=== PATIENT | female | born 1965 | race American Indian/Alaskan Native ===

== ENCOUNTER 2016-11-30 15:48 | Emergency (ER) | payer BC ==
[2016-11-30 16:19] VITALS: BP 145/83; RESP 18; TEMP 98.1
[2016-11-30] MEDS ORDERED: Enoxaparin 120 mg Syringe SC STA (16:53)
[2016-11-30 17:13] VITALS: PULSE 66; O2SAT 97
--- NOTE | 2016-11-30 17:57 | C.PDOC ---
History Of Present Illness 51 y/o female presents to ED with complaints of left calf swelling increasing with nature for 4 days. Patient denies trauma, recent travel, tender to touch or sob. Patient has no Hx of blood clots. No other complaints at this time. Chief Complaint (Nursing): Lower Extremity Problem/Injury History Per: Patient History/Exam Limitations: no limitations Onset/Duration Of Symptoms: Days Current Symptoms Are (Timing): Still Present Past Medical History Reviewed: Historical Data, Nursing Documentation, Vital Signs Vital Signs: Last Vital Signs Temp 98.1 F 11/30/16 16:15 Pulse 66 11/30/16 17:10 Resp 18 11/30/16 17:10 BP 145/83 11/30/16 16:15 Pulse Ox 97 11/30/16 18:01 Surgical History: Cholecystectomy Family History: States: No Known Family Hx - Social History Hx Alcohol Use: No Hx Substance Use: No Review Of Systems Except As Marked, All Systems Reviewed And Found Negative. Constitutional: Negative for: Fever, Chills Gastrointestinal: Negative for: Nausea, Vomiting, Diarrhea Musculoskeletal: Positive for: Leg Pain Skin: Negative for: Rash Neurological: Negative for: Weakness Physical Exam - Physical Exam Appears: Non-toxic, No Acute Distress Skin: Normal Color, Warm Head: Atraumatic, Normacephalic Cardiovascular: Rhythm Regular, No Murmur Respiratory: Normal Breath Sounds, No Rales, No Rhonchi, No Wheezing Gastrointestinal/Abdominal: Soft, No Tenderness, No Guarding, No Rebound Extremity: Capillary Refill (<2 seconds), Other (Left lower extremity larger than right) Pulses: Left Femoral: Normal, Right Femoral: Normal Neurological/Psych: Oriented x3, Normal Motor, Normal Sensation, Normal Reflexes ED Course And Treatment O2 Sat by Pulse Oximetry: 97 (RA) Pulse Ox Interpretation: Normal Progress Note: Patient was given Lovenox injection and was advised to follow up at ED tomorrow for US, Patient understands plan Disposition - Disposition Referrals: Mika Devi, [Non-Staff] - Disposition: HOME/ ROUTINE Disposition Time: 16:50 Condition: GOOD Additional Instructions: Thank you for letting us take care of you today. Your provider was Dr. Porter. You were treated for leg swelling. The emergency medical care you received today was directed at your acute symptoms. If you were prescribed any medication, please fill it and take as directed. It may take several days for your symptoms to resolve. Return to the Emergency Department if your symptoms worsen, do not improve, or if you have any other problems. Please contact your doctor or call one of the physicians/clinics you have been referred to that are listed on the Patient Visit Information form that is included in your discharge packet. Bring any paperwork you were given at discharge with you along with any medications you are taking to your follow up visit. Our treatment cannot replace ongoing medical care by a primary care provider (PCP) outside of the emergency department. Thank you for allowing the [facility] team to be part of your care today. FOLLOW UP IN THE EMERGENCY ROOM TOMORROW MORNING AT 9AM FOR AN ULTRASOUND STUDY ON YOUR LEFT LEG. Instructions: Leg Edema (ED) - Clinical Impression Clinical Impression: Leg swelling - Scribe Statement The provider has reviewed the documentation as recorded by the Doris Davison All medical record entries made by the Donaldibmiguel were at my direction and personally dictated by me. I have reviewed the chart and agree that the record accurately reflects my personal performance of the history, physical exam, medical decision making, and the department course for this patient. I have also personally directed, reviewed, and agree with the discharge instructions and disposition.
== END 2016-11-30 17:12 | disposition home or self-care (01) ==
LOC: C.ER 15:48
DX: M79.89 Other specified soft tissue disorders (principal)
CPT/HCPCS: 96372; 99284; J1650

== ENCOUNTER 2016-12-01 08:52 | Emergency (ER) | payer BC ==
[2016-12-01 09:10] VITALS: BMI 30.2
[2016-12-01 09:11] VITALS: BP 141/87; PULSE 70; RESP 18; TEMP 97.7; O2SAT 96
--- NOTE | 2016-12-01 10:00 | C.PDOC ---
History Of Present Illness 51 y/o female presents to the ED for doppler of left leg. Pt seen yesterday for left leg swelling, instructed to return today for doppler study. Denies fever, chills, chest pain, SOB or any other complaints. Time Seen by Provider: 12/01/16 09:09 Chief Complaint (Nursing): Medical Clearance History Per: Patient History/Exam Limitations: no limitations Onset/Duration Of Symptoms: Days Current Symptoms Are (Timing): Still Present Severity: Moderate Reports Recently: Seen In ED Recent travel outside of the [place]: No Past Medical History Reviewed: Historical Data, Nursing Documentation, Vital Signs Vital Signs: Last Vital Signs Temp 97.7 F 12/01/16 09:08 Pulse 70 12/01/16 09:08 Resp 18 12/01/16 09:08 BP 141/87 12/01/16 09:08 Pulse Ox 96 12/01/16 10:26 - Medical History PMH: No Chronic Diseases Surgical History: Cholecystectomy Family History: States: Unknown Family Hx - Social History Hx Alcohol Use: No Hx Substance Use: No - Immunization History Hx Tetanus Toxoid Vaccination: Yes Hx Influenza Vaccination: Yes Hx Pneumococcal Vaccination: Yes Review Of Systems Except As Marked, All Systems Reviewed And Found Negative. Constitutional: Negative for: Fever, Chills Cardiovascular: Negative for: Chest Pain Respiratory: Negative for: Shortness of Breath Musculoskeletal: Positive for: Other (left leg swelling) Physical Exam - Physical Exam Appears: Non-toxic, No Acute Distress Skin: Warm, Dry, No Rash Head: Atraumatic, Normacephalic Oral Mucosa: Moist Neck: Normal, Normal ROM, Supple Chest: Symmetrical Cardiovascular: Rhythm Regular, No Murmur Respiratory: Normal Breath Sounds, No Rales, No Rhonchi, No Wheezing Gastrointestinal/Abdominal: Normal Exam, Soft, No Tenderness Extremity: Normal ROM, Capillary Refill (<2 seconds), Swelling (diffuse left leg swelling and tenderness) Pulses: Left Dorsalis Pedis: Normal, Right Dorsalis Pedis: Normal Neurological/Psych: Oriented x3, Normal Speech, Normal Motor, Normal Sensation ED Course And Treatment O2 Sat by Pulse Oximetry: 96 (room air) Pulse Ox Interpretation: Normal Progress Note: Plan: venous duplex left lower extremity. Doppler (-) DVT Reassessment Condition: Unchanged Disposition Counseled Patient/Family Regarding: Studies Performed, Diagnosis, Need For Followup - Disposition Disposition: HOME/ ROUTINE Disposition Time: 11:00 Condition: STABLE Additional Instructions: Follow up with your PMD for further evaluation Instructions: Leg Edema (ED), Leg Pain (ED) Forms: Work Excuse - POA Present On Arrival: None - Clinical Impression Clinical Impression: Leg swelling, Leg pain - PA / [employer] / Resident Statement MD/DO has reviewed & agrees with the documentation as recorded. - Scribe Statement The provider has reviewed the documentation as recorded by the Donaldibmiguel Vaughn All medical record entries made by the Doris were at my direction and personally dictated by me. I have reviewed the chart and agree that the record accurately reflects my personal performance of the history, physical exam, medical decision making, and the department course for this patient. I have also personally directed, reviewed, and agree with the discharge instructions and disposition.
--- NOTE | 2016-12-02 14:00 | VASCLAB ---
PROCEDURE: Lower Extremity Venous Duplex Exam. HISTORY: Swelling PRIORS: None. TECHNIQUE: Bilateral common femoral, femoral, popliteal and posterior tibial, peroneal and great saphenous veins were evaluated. Flow was assessed with color Doppler, compressibility, assessment of phasic flow and augmentation response. Report prepared by JACOB Rashid FINDINGS: RIGHT: 1. Common Femoral Vein: 1.1. Compressibility - Fully compressible: Thrombus - None : Flow - Phasic: Augmentation -Normal: Reflux - None. 2. Femoral Vein: 2.1. Compressibility - Fully compressible: Thrombus - None : Flow - Phasic: Augmentation -Normal: Reflux - None. 3. Popliteal Vein: 3.1. Compressibility - Fully compressible: Thrombus - None : Flow - Phasic: Augmentation -Normal: Reflux - None. 4. Posterior Tibial Vein: 4.1. Compressibility - Fully compressible: Thrombus - None: Flow - Phasic: Augmentation -Normal: Reflux - None. 5. Peroneal Vein: 5.1. Compressibility - Fully compressible: Thrombus - None: Flow - Phasic: Augmentation -Normal: Reflux - None. 6. Great Saphenous Vein: 6.1. Compressibility - Fully compressible: Thrombus - None: Flow - Phasic: Augmentation - Normal: Reflux - None. LEFT: 1. Common Femoral Vein: 1.1. Compressibility - Fully compressible: Thrombus - None: Flow - Phasic: Augmentation -Normal: Reflux - None. 2. Femoral Vein: 2.1. Compressibility - Fully compressible: Thrombus - None: Flow - Phasic: Augmentation -Normal: Reflux - None. 3. Popliteal Vein: 3.1. Compressibility - Fully compressible: Thrombus - None : Flow - Phasic: Augmentation -Normal: Reflux - None. 4. Posterior Tibial Vein: 4.1. Compressibility - Fully compressible: Thrombus - None: Flow - Phasic: Augmentation -Normal: Reflux - None. 5. Peroneal Vein: 5.1. Compressibility - Fully compressible: Thrombus - None: Flow - Phasic: Augmentation -Normal: Reflux - None. 6. Great Saphenous Vein: 6.1. Compressibility - Fully compressible: Thrombus - None: Flow - Phasic: Augmentation - Normal: Reflux - None. OTHER FINDINGS: Right: None significant. Left: None significant. IMPRESSION: Right: No evidence of deep or superficial vein thrombosis of the right lower extremity. Normal valve function noted of the right side. Left: No evidence of deep or superficial vein thrombosis of the left lower extremity. Normal valve function noted of the left side.
== END 2016-12-01 10:37 | disposition home or self-care (01) ==
LOC: C.ER 08:52
DX: M79.89 Other specified soft tissue disorders (principal); M79.605 Pain in left leg

== ENCOUNTER 2017-11-22 07:53 | Emergency (ER) | payer BC ==
[2017-11-22 07:53] VITALS: BMI 30.2
--- NOTE | 2017-11-22 09:11 | C.PDOC ---
History Of Present Illness 52-year-old female, presents to the emergency department with complaints of several week history of left knee pain. She states it is located in anterior knee and radiates down when she walks. Pain is worsened with walking and movement. She states she has been dealing with the pain for quite some time, but over the past week it has gotten much worse, prompting visit. Denies travel , numbness/weakness, rash, or any other associated symptoms. No other complaints at this time. Time Seen by Provider: 11/22/17 08:24 Chief Complaint (Nursing): Lower Extremity Problem/Injury History Per: Patient History/Exam Limitations: no limitations Past Medical History Reviewed: Historical Data, Nursing Documentation, Vital Signs Vital Signs: Last Vital Signs Temp 98.1 F 11/22/17 10:57 Pulse 84 11/22/17 10:57 Resp 20 11/22/17 10:57 BP 138/64 11/22/17 10:57 Pulse Ox 96 11/22/17 10:57 Surgical History: Cholecystectomy Family History: States: No Known Family Hx - Social History Hx Alcohol Use: No Hx Substance Use: No - Immunization History Hx Tetanus Toxoid Vaccination: Yes Hx Influenza Vaccination: Yes Hx Pneumococcal Vaccination: Yes Review Of Systems Except As Marked, All Systems Reviewed And Found Negative. Constitutional: Negative for: Fever, Chills Gastrointestinal: Negative for: Nausea, Vomiting Skin: Negative for: Rash Neurological: Negative for: Weakness, Numbness Physical Exam - Physical Exam Appears: Non-toxic, No Acute Distress Skin: Normal Color, Warm, Dry, No Rash Head: Atraumatic, Normacephalic Eye(s): bilateral: Normal Inspection, PERRL Nose: Normal Oral Mucosa: Moist Lips: Normal Appearing Neck: Normal ROM Chest: Symmetrical Cardiovascular: Rhythm Regular, No Murmur Respiratory: Normal Breath Sounds, No Accessory Muscle Use Extremity: Normal ROM, No Deformity, No Swelling, Other (Tenderness and mild effusion anteriorly and to medial aspect of the knee. ) Neurological/Psych: Oriented x3, Normal Speech ED Course And Treatment O2 Sat by Pulse Oximetry: 99 (RA) Pulse Ox Interpretation: Normal - Other Rad XR KNEE X-Ray: Viewed By Me, Read By Radiologist Interpretation: Accession No. : [id number]. Patient Name / ID : STEVEN DIEHL / [id number]. Exam Date : 11/22/2017 09:34:08 ( Approved ). Study Comment : Sex / Age : F / 52Y. Creator : Rizwana Duarte. Dictator : Rizwana Duarte. Retail Pharmacy Manager : Acoustics Teacher : Rizwana Avery. Approver2 : Report Date : 11/22/2017 09:59:08. My Comment : . PROCEDURE: Left Knee Radiographs. HISTORY: Pain. COMPARISON : None. FINDINGS: BONES: No fracture. Minimal spurring present. The lateral view wrist posterior tibial and fibular cortical hyperostoses apparent. The chronicity of this is unknown. The fat planes on this lateral view do appear intact. JOINTS: Mild osteoarthrosis. JOINT EFFUSION: Present. OTHER FINDINGS: Tissue swelling anterior leg subcutaneous fat reticulation. IMPRESSION: Mild osteoarthrosis. Moderate joint effusion. Posterior tibial and lesser fibular cortical/periosteal reaction and of unknown chronicity. Consider MRI of the left leg superior aspect to further evaluate this area. If patient has any prior outside radiographs - comparison with and could be made to assess stability of this appearance. Anterior upper leg subcutaneous reticulated edema. Comments: Study marked for PA review. Medical Decision Making Medical Decision Making: Knee immobilizer was placed by histology tech. Disposition - Disposition Referrals: Peri Oleary MD [Staff Provider] - Erendira Rooney MD [Staff Provider] - Disposition: HOME/ ROUTINE Disposition Time: 10:21 Condition: GOOD Additional Instructions: Follow up with the medical doctor in 1-2 days without fail. Return if worsened. Prescriptions: Naproxen [Naprosyn] 500 mg PO BID #20 tab predniSONE [Prednisone] 20 mg PO BID #10 tab Instructions: Knee Pain (DC) Forms: [facility] (Bel[place]ian), Work Excuse - Clinical Impression Clinical Impression: Knee pain - Scribe Statement The provider has reviewed the documentation as recorded by the Scribe (Jesus Manuel Coates) All medical record entries made by the Scribe were at my direction and personally dictated by me. I have reviewed the chart and agree that the record accurately reflects my personal performance of the history, physical exam, medical decision making, and the department course for this patient. I have also personally directed, reviewed, and agree with the discharge instructions and disposition.
--- NOTE | 2017-11-22 10:01 | RAD ---
PROCEDURE: Left Knee Radiographs. HISTORY: Pain. COMPARISON: None. FINDINGS: BONES: No fracture. Minimal spurring present The lateral view wrist posterior tibial and fibular cortical hyperostoses apparent. The chronicity of this is unknown. The fat planes on this lateral view do appear intact. JOINTS: Mild osteoarthrosis JOINT EFFUSION: Present OTHER FINDINGS: Tissue swelling anterior leg subcutaneous fat reticulation. IMPRESSION: Mild osteoarthrosis. Moderate joint effusion Posterior tibial and lesser fibular cortical/periosteal reaction and of unknown chronicity. Consider MRI of the left leg superior aspect to further evaluate this area. If patient has any prior outside radiographs - comparison with and could be made to assess stability of this appearance Anterior upper leg subcutaneous reticulated edema Comments: Study marked for PA review.
[2017-11-22 10:58] VITALS: BP 138/64; PULSE 84; RESP 20; TEMP 98.1
[2017-11-22 12:12] VITALS: O2SAT 99
== END 2017-11-22 10:57 | disposition home or self-care (01) ==
LOC: C.ER 07:53
DX: M25.562 Pain in left knee (principal)

== ENCOUNTER 2018-10-09 07:48 | Emergency (ER) | payer BC ==
[2018-10-09 07:50] VITALS: BMI 30.2
--- NOTE | 2018-10-09 10:34 | C.PDOC ---
History Of Present Illness 53 y/o female comes in complaining of left knee pain and swelling for the last 3 days that comes and goes, has had similar symptoms for years per patient. . Denies any trauma. Denies fever, chills, weakness, or numbness. Reports she has not been taking any pain medications. no cp or sob. Time Seen by Provider: 10/09/18 08:08 Chief Complaint (Nursing): Lower Extremity Problem/Injury History Per: Patient History/Exam Limitations: no limitations Onset/Duration Of Symptoms: Days Current Symptoms Are (Timing): Still Present Past Medical History Reviewed: Historical Data, Nursing Documentation, Vital Signs Vital Signs: Last Vital Signs Temp 97.8 F 10/09/18 07:53 Pulse 97 H 10/09/18 07:53 Resp 16 10/09/18 07:53 BP 125/91 H 10/09/18 07:53 Pulse Ox 100 10/09/18 07:53 Primary Care Provider: Erendira Rooney Surgical History: Cholecystectomy Family History: States: No Known Family Hx - Social History Hx Alcohol Use: No Hx Substance Use: No - Immunization History Hx Tetanus Toxoid Vaccination: Yes Hx Influenza Vaccination: Yes Hx Pneumococcal Vaccination: Yes Review Of Systems Constitutional: Negative for: Fever, Chills Cardiovascular: Negative for: Chest Pain Respiratory: Negative for: Shortness of Breath Gastrointestinal: Negative for: Nausea, Vomiting, Abdominal Pain Musculoskeletal: Positive for: Other (left knee pain and swelling). Negative for: Back Pain Skin: Negative for: Rash Neurological: Negative for: Weakness, Numbness, Headache Physical Exam - Physical Exam Appears: Non-toxic, No Acute Distress Skin: Warm, Dry, No Rash Head: Atraumatic, Normacephalic Oral Mucosa: Moist Neck: Supple Cardiovascular: Rhythm Regular Respiratory: No Decreased Breath Sounds, No Wheezing Extremity: Tenderness (to medial proximal aspect of left knee, no erythema or warmth), Calf Tenderness (left calf, mild), Swelling (and tenderness to left knee, mostly in the lateral distal aspect), Other (left calf larger than right; has rough and dark patch on entire length of dutta) Extremity: Bilateral: Normal ROM Pulses: Left Dorsalis Pedis: Decreased (+1), Right Dorsalis Pedis: Normal (+2) Neurological/Psych: Oriented x3, Normal Speech, Normal Cognition, Normal Motor, Normal Sensation Gait: Steady ED Course And Treatment O2 Sat by Pulse Oximetry: 100 (RA) Pulse Ox Interpretation: Normal - Other Rad Left Knee XR X-Ray: Read By Radiologist Interpretation: IMPRESSION: No evidence of acute displaced fracture nor dislocation. Minor degenerative osteoarthritis. Moderate-sized suprapatellar joint effusion Medical Decision Making Medical Decision Making: Plan: --Left Knee XR --Venous Duplex Scan of lower extremities --Ibuprofen 600 mg PO 1225 pt with no dvt, +knee effusion. knee immobilizer applied. d/c home, pt to f/u with orthopedist. Disposition Counseled Patient/Family Regarding: Studies Performed, Diagnosis, Need For Fo llowup, Rx Given - Disposition Referrals: Guilherme Montalvo MD [Staff Provider] - Disposition: HOME/ ROUTINE Disposition Time: 12:26 Condition: GOOD Additional Instructions: Wear knee immobilizer for comfort. Tylenol or Motrin for pain if needed. Cold compresses to knee several toimes a day. Follow up with Dr Montalvo and your primary care doctor. Prescriptions: Acetaminophen [Tylenol 325mg tab] 650 mg PO Q4 #50 tab Instructions: Swollen Joints (DC) Forms: [employer] ([place]), General Discharge Instructions - Clinical Impression Clinical Impression: Knee effusion, left - PA / MAILING [employer]GGER / Resident Statement MD/DO has reviewed & agrees with the documentation as recorded. - Scribe Statement The provider has reviewed the documentation as recorded by the Scribe Adwoa Schwartz All medical record entries made by the Scribe were at my direction and personally dictated by me. I have reviewed the chart and agree that the record accurately reflects my personal performance of the history, physical exam, medical decision making, and the department course for this patient. I have also personally directed, reviewed, and agree with the discharge instructions and disposition.
--- NOTE | 2018-10-09 11:37 | RAD ---
Date of service: 10/09/2018 PROCEDURE: Left Knee Radiographs. HISTORY: Pain. COMPARISON: Comparison made with prior radiographs of the left knee dated 11/22/2017. TECHNIQUE: 2 views obtained. FINDINGS: No evidence of acute displaced fracture nor dislocation. BONES: No evidence of acute displaced fracture nor dislocation JOINTS: Minor degenerative osteoarthritis.. JOINT EFFUSION: Moderate-sized suprapatellar joint effusion OTHER FINDINGS: There also appears to be some mild subcutaneous edema IMPRESSION: No evidence of acute displaced fracture nor dislocation. Minor degenerative osteoarthritis. Moderate-sized suprapatellar joint effusion
[2018-10-09 12:18] VITALS: BP 132/85; PULSE 64; RESP 18; TEMP 97.9
[2018-10-09 12:28] VITALS: O2SAT 100
--- NOTE | 2018-10-09 13:49 | VASCLAB ---
Date of service: 10/09/2018 PROCEDURE: Left Lower Extremity Venous Duplex Exam. HISTORY: calf and knee ward with swelling PRIORS: Normal exam on 12/01/2016. TECHNIQUE: Left common femoral, femoral, popliteal and posterior tibial, peroneal and great saphenous veins were evaluated. Flow was assessed with color Doppler, compressibility, assessment of phasic flow and augmentation response. Report prepared by JACOB Rashid FINDINGS: LEFT: 1. Common Femoral Vein: 1.1. Compressibility - Fully compressible: Thrombus - None : Flow - Phasic: Augmentation -Normal: Reflux - None. 2. Femoral Vein: 2.1. Compressibility - Fully compressible: Thrombus - None: Flow - Phasic: Augmentation -Normal: Reflux - None. 3. Popliteal Vein: 3.1. Compressibility - Fully compressible: Thrombus - None: Flow - Phasic: Augmentation -Normal: Reflux - None. 4. Posterior Tibial Vein: 4.1. Compressibility - Fully compressible: Thrombus - None: Flow - Phasic: Augmentation -Normal: Reflux - None. 5. Peroneal Vein: 5.1. Compressibility - Fully compressible: Thrombus - None: Flow - Phasic: Augmentation -Normal: Reflux - None. 6. Great Saphenous Vein: 6.1. Compressibility - Fully compressible: Thrombus - None: Flow - Phasic: Augmentation - Normal: Reflux - None. OTHER FINDINGS: Normal venous flow noted in the RIGHT common femoral vein. IMPRESSION: No evidence of deep or superficial vein thrombosis of the left lower extremity with excellent venous flow. Normal valve function noted of the left side.
== END 2018-10-09 12:36 | disposition home or self-care (01) ==
LOC: C.ER 07:48
DX: M25.462 Effusion, left knee (principal)